=== PATIENT | female | born 1955 | race Caucasian/White ===

== ENCOUNTER → 2022-05-13 09:01 | Outpatient (CLI) | payer OTHER, SELFPAY | PROVIDERS: PCP Physician Assistant; Visit Provider Physician Assistant | DX: Z91.89 Other specified personal risk factors, not elsewhere classified (principal) | CPT/HCPCS: 87077; 87086; 87186 ==

== ENCOUNTER → 2022-07-22 07:00 | Outpatient (CLI) | payer OTHER, SELFPAY ==
[2022-07-22 21:56] LABS: COVID19 - ORCAS (NP or Nasal) Negative (Negative)
== END ==
PROVIDERS: PCP Physician Assistant; Visit Provider Physician Assistant
DX: Z20.822 Contact with and (suspected) exposure to COVID-19 (principal); Z01.812 Encounter for preprocedural laboratory examination
CPT/HCPCS: U0003

== ENCOUNTER 2022-07-23 14:13 | Day surgery (SDC) | payer OTHER, SELFPAY ==
[2022-07-22 07:57] VITALS: BMI 22.9
[2022-07-23 14:37] VITALS: BP 117/71; PULSE 66; RESP 20; TEMP 36; O2SAT 98; BMI 22.4
[2022-07-23] MEDS: LACTATED RINGERS 1,000 ML 42 ML IV (14:54)
--- NOTE | 2022-07-23 16:53 | PM.HP.1 ---
History of Present Illness History of Present Illness Date Patient Seen: 07/23/22 Time Patient Seen: 16:54 Chief complaint: Umbilical Hernia Repair Narrative: Anatoly is here for her open umbilical hernia repair. No changes since our last encounter. Please see that note for details. Patient History Medical History (Updated 07/21/22 @ 21:41 by Zulma Green) Abnormal Pap smear of cervix (~2016) Carpal tunnel syndrome (~2018) Chicken pox Colon cancer screening Endometriosis (~2014) Herpes (~1967) History of urinary incontinence Knee pain Measles Migraines (~1979) Mumps Ovarian cyst (~2000) Postmenopausal atrophic vaginitis Purulent conjunctivitis Surgical History (Updated 07/21/22 @ 21:41 by Zulma Green) Anesthesia History of (~1987) History of colonoscopy History of hysteroscopy (~07/27/19) History of tonsillectomy Family & Social History Family History (Updated 07/21/22 @ 21:42 by Zulma Green) Father History of heart disease Mother Dementia Grandmother Osteoporosis Grandfather Stroke Social History: household members spouse Tobacco & Substance use: Tobacco type cannabis/marijuana Smoking Status Current some day smoker alcohol intake current alcohol intake frequency a few times a week Substance Use Type marijuana Meds Home Medications and Allergies Home Medications Medication Instructions Recorded Confirmed Type diclofenac sodium 1 % topical gel 4 g topical QID #100 grams 07/05/21 07/23/22 Rx (Voltaren Arthritis Pain) estradiol 0.01% (0.1 mg/gram) 1 g vaginal QWEEK 07/05/21 07/23/22 History vaginal cream (Estrace) Allergies Allergy/AdvReac Type Severity Reaction Status Date / Time ciprofloxacin [From Cipro] AdvReac Intermediate Malaise Verified 07/23/22 14:42 meperidine [From Demerol] AdvReac Mild Abdominal Verified 07/23/22 14:42 Pain Exam Vital Signs (past 8 hours): - 07/23/22 14:37 Temperature 96.8 F L Pulse Rate 66 Respiratory Rate 20 Blood Pressure 117/71 Pulse Oximetry 98 Oxygen Delivery Method Room Air Oxygen Flow Rate 0 Oxygen Delivery Method Room Air Oxygen Flow Rate 0 Const General: comfortable Assessment & Plan Assessment and plan (1) Umbilical hernia: Qualifiers: Obstruction and gangrene presence: without obstruction or gangrene Qualified Code(s): K42.9 - Umbilical hernia without obstruction or gangrene Status: Acute Plan Plan for open umbilical hernia repair with mesh. We reviewed the risks and benefits and she would like to proceed. Time Spent With Patient Critical Care time: I spent a total of [] minutes of critical care time on this patient's care today; this time is exclusive of procedural time.
[2022-07-23] MEDS: CEFAZOLIN 2 GM/100 ML PREMIX 100 ML IV (17:06)
--- NOTE | 2022-07-23 17:23 | SUR.OPER ---
Supine on padded OR bed, head on pillow, arms secured on padded arm boards at <90 degrees abduction, legs uncrossed, safety belt at thigh, tape over blanket over lower legs.
[2022-07-23] MEDS: BUPIVACAINE 0.25% (PF) 30 ML, EPINEPHrine 0.15 MG INJ (17:28)
--- NOTE | 2022-07-23 17:55 | PM.OP.1 ---
Operative Date/Time/Diagnoses Date of procedure: 07/23/22 Time of procedure: 17:55 Pre-op diagnosis: Umbilical hernia Post-op diagnosis: same Procedure & Clinicians Procedure: Open umbilical hernia repair with mesh Same procedure as scheduled: Yes Surgeon: Justino Bello Anesthesia Type: General Operative Notes Procedure in detail: Ancef was administered. The patient was brought to the operating room, placed on the table in the supine position and general anesthesia was induced. The abdomen was prepped and draped in the usual fashion. A time-out was performed. A 6 cm curvilinear incision was made inferior to the umbilicus. The hernia sac was dissected free from the surrounding subcutaneous adipose tissue. The sac was dissected off the umbilical stalk using a combination of cautery, sharp and blunt dissection. The fatty contents of the hernia could not be reduced. We did increase the size of the fascial defect with scissors but we could still not reduce hernia. We then amputated the fat that was within the hernia using cautery. The stalk was allowed to drop back down into the abdomen. The fascia was then closed transversely with multiple interrupted 0 Ethibond sutures. The subcutaneous adipose tissue was cleared off of the anterior sheath circumferentially about 2 cm in each direction. A piece of polypropylene mesh was trimmed to fit over the fascial closure and secured with Tisseel. Once the Tisseel was dried the umbilical skin was tacked down to the mesh with a single 3-0 Vicryl stitch. The skin was closed with multiple interrupted 3-0 Vicryl dermal sutures followed by a running 4 Monocryl subcuticular closure. Steri-Strips were applied and an abdominal binder was applied. Post-operative Condition: stable Disposition: PACU
[2022-07-23 17:56] VITALS: BP 123/66; PULSE 93; RESP 17; TEMP 36.6; O2SAT 98
[2022-07-23 18:01] VITALS: BP 135/73; PULSE 97; RESP 20; O2SAT 96
[2022-07-23 18:07] VITALS: BP 118/49; PULSE 80; RESP 15; O2SAT 97
[2022-07-23 18:13] VITALS: BP 125/73; PULSE 71; RESP 16; TEMP 36.6; O2SAT 99
[2022-07-23] MEDS: OXYCODONE IR 5 MG TABLET PO (18:19)
[2022-07-23 18:25] VITALS: BP 123/80; PULSE 73; RESP 15; O2SAT 99
== END 2022-07-23 18:45 | disposition home or self-care (01) ==
PROVIDERS: PCP Physician Assistant; Referring Provider Surgery; Visit Provider Surgery
PROC: (CPT 49587; principal; 2022-07-23 15:45)
DX: K42.0 Umbilical hernia with obstruction, without gangrene (principal)
CPT/HCPCS: 49587; J0171; J0690; J1100; J2405; J2704; J3010

== ENCOUNTER → 2022-09-25 09:05 | Outpatient (CLI) | payer OTHER, SELFPAY ==
[2022-09-25 19:26] LABS: Add Manual Diff / Slide Review NO; Basophils Absolute Auto 0 /uL (0-100); Basophils Percent Auto 0.8 % (0-2); Eosinophils Absolute Auto 200 /uL (0-450); Eosinophils Percent Auto 4.6 % (2-4); Hematocrit 38.8 % (36-46); Hemoglobin 12.7 g/dL (12.0-16.0); Lymphocytes Absolute Auto 1500 /uL (1100-4500); Lymphocytes Percent Auto 34.1 % (25-40); Mean Corpuscular HGB Conc 32.8 % (30-36); Mean Corpuscular Hemoglobin 28.4 PG (26-34); Mean Corpuscular Volume 86.8 fL (80-100); Monocytes Absolute Auto 400 /uL (0-900); Monocytes Percent Auto 8.5 % (3-14); Neutrophils Absolute Auto 2300 /uL (1500-7000); Platelet Count 220 X10^3/uL (150-400); Red Blood Cell Count 4.47 X10^6/uL (4.0-5.2); Red Cell Distribution Width 13.5 % (11.6-14.8); White Blood Cell Count 4.5 X10^3/uL (4.5-11.0)
[2022-09-25 19:53] LABS: Alanine Aminotransferase 27 IU/L (<35); Albumin 4.3 g/dL (3.5-5.0); Albumin Globulin Ratio 1.8 (1.0-2.8); Alkaline Phosphatase 72 U/L (38-126); Aspartate Aminotransferase 32 IU/L (14-36); BUN Creatinine Ratio 24.1 (6-22); Blood Urea Nitrogen 20 mg/dL (7-17); Calcium 9.5 mg/dL (8.4-10.2); Carbon Dioxide 26 mmol/L (22-32); Chloride 102 mmol/L (98-107); Cholesterol 216 mg/dL (140-199); Estimated Glomerular Filt Rate > 60 mL/min (>60); Globulin 2.4 g/dL (1.7-4.1); Glucose 77 mg/dL (80-110); HDL Cholesterol 73 mg/dL (40-60); HEMOLYSIS < 15 (0-50); LDL Cholesterol Calculated 128 mg/dL (<100); Potassium 4.4 mmol/L (3.4-5.1); Sodium 140 mmol/L (137-145); Total Protein 6.7 g/dL (6.3-8.2); Triglycerides 75 mg/dL (35-150)
[2022-09-25 20:02] LABS: Appearance Urine UA CLEAR; Bilirubin Urine UA NEGATIVE (NEGATIVE); Color Urine UA YELLOW; Glucose Urine UA NEGATIVE (Negative); Ketones Urine UA NEGATIVE (NEGATIVE); Leukocyte Esterase Urine UA NEGATIVE (NEGATIVE); Nitrite Urine UA NEGATIVE (Negative); Occult Blood Urine UA NEGATIVE (Negative); Protein Urine UA NEGATIVE (Negative); Specific Gravity Urine UA 1.015 (1.000-1.035); Urobilinogen Urine UA 0.2 E.U./dL (0.2)
[2022-09-25 20:14] LABS: TSH w/ Reflex to FT4 1.36 uIU/mL (0.47-4.68)
[2022-09-25 20:40] LABS: Bacteria Urine None Seen; RBC Urine None Seen (0-5/HPF); Squamous Epithelial Cell Urine None Seen (0-5/HPF); Urine Comments Microscopic Normal; WBC Urine None Seen (0-5/HPF)
== END ==
PROVIDERS: PCP Physician Assistant; Visit Provider Physician Assistant
DX: E78.5 Hyperlipidemia, unspecified (principal); R53.83 Other fatigue; N39.0 Urinary tract infection, site not specified; R33.9 Retention of urine, unspecified
CPT/HCPCS: 80053; 80061; 81001; 84443; 85025

== ENCOUNTER → 2023-06-04 12:29 | Outpatient (CLI) | payer OTHER, SELFPAY ==
--- NOTE | 2023-06-04 | DI.MG.S_ITS ---
BILATERAL DIGITAL SCREENING MAMMOGRAM 3D/2D WITH CAD: 06/04/2023 CLINICAL: Routine screening. Comparison is made to exams dated: 01/16/2021 mammogram, 05/11/2020 mammogram, and 10/26/2019 mammogram - out side. There are scattered areas of fibroglandular density in both breasts (category b / 25%-50% glandular tissue). Current study was also evaluated with a Computer Aided Detection (CAD) system. No significant masses, calcifications, or other findings are seen in either breast. IMPRESSION: NEGATIVE There is no mammographic evidence of malignancy. A 1 year screening mammogram is recommended. Based on the Tyrer Cuzick model (a risk assessment model) the patient's lifetime risk is 5.9% and her 10 year risk is 3.3%. According to the ACR, ACS, and NCCN guidelines, an annual breast MRI exam along with mammogram is recommended if the patient's lifetime risk is 20% or greater. This exam was interpreted at Station ID: [id number]. NOTE: For mammograms, a report in lay terms will be sent to the patient. Approximately 15% of breast malignancies will not be visualized mammographically. In the management of a palpable breast mass, a negative mammogram must not discourage biopsy of a clinically suspicious lesion. Electronically Signed By: Glenda santillan/memo:06/04/2023 13:29:38 letter sent: Normal Exam ACR BI-RADS Category 1: Negative [id number]
--- NOTE | 2023-06-04 13:06 | DI.DEXA.S_ITS ---
Bone Density Report Name: TRAVIS ALMONTE Age: 67 Sex: Female Ethnicity: White Date of : 1955 Indication: postmenopausal; screening for osteoporosis; Referring Provider: Nicole Ackerman M.D. Study: Bone densitometry was performed. Exam Date: June 04, 2023 Accession number: [id number] Bone Density: Region BMD T-score Z-score Classification AP Spine(L1-L4) 0.889 -1.4 0.6 Osteopenia Femoral Neck (Left) 0.729 -1.1 0.6 Osteopenia Total Hip (Left) 0.759 -1.5 -0.1 Osteopenia Femoral Neck (Right) 0.713 -1.2 0.5 Osteopenia Total Hip (Right) 0.722 -1.8 -0.4 Osteopenia Total Hip Mean 0.741 -1.7 -0.3 Osteopenia World Health Organization criteria for BMD impression classify patients as: Normal (T-score at or above -1.0), Osteopenia (T-score between -1.0 and -2.5), or Osteoporosis (T-score at or below -2.5). 10-year Fracture Risk(1): Major Osteoporotic Fracture 8.4% Hip Fracture 0.9% Reported Risk Factors: [place] (), Neck BMD=0.713, BMI=22.3 (1) FRAX(R) Version 3.08. Fracture probability calculated for an untreated patient. Fracture probability may be lower if the patient has received treatment. Impression: The patient has low bone mass, based on the Right Total Hip T-score. The patient has an estimated ten-year risk of hip fracture of 0.9% and an estimated ten-year risk of major fracture of 8.4%, based on the WHO FRAX algorithm. Discussion: BONE DENSITY IS LOW AT ONE OR MORE SKELETAL SITES. This patient's lowest T-score is low at one or more skeletal sites. It meets the World Health Organization's (WHO) criteria for ?low bone mass? (T-score between -1.0 and -2.5). The patient's 10-year risk of fracture as calculated by FRAX is less than the threshold where pharmacological therapy is recommended by the National Osteoporosis Foundation (NOF). However, all treatment decisions require clinical judgment and consideration of individual patient factors, including patient preferences, comorbidities, previous drug use, risk factors not captured in the FRAX model (e.g., frailty, falls, vitamin D deficiency, increased bone turnover, interval significant decline in bone density) and possible under or overestimation of fracture risk by FRAX. The patient should follow a healthful lifestyle (good nutrition with adequate calcium and vitamin D, and appropriate weight-bearing exercise). Follow-Up: Consider repeating this study in 2 to 3 years to reassess this patient's status, or sooner if there is some new clinical indication. Reported by: OLIVE THAKKAR M.D. on 06/04/2023 9:51:00 AM.
== END ==
PROVIDERS: PCP Family Medicine; Referring Provider Family Medicine; Visit Provider Family Medicine
DX: M85.851 Other specified disorders of bone density and structure, right thigh (principal); Z12.31 Encounter for screening mammogram for malignant neoplasm of breast; Z78.0 Asymptomatic menopausal state
CPT/HCPCS: 77063; 77067; 77080